=== PATIENT | female | born 1995 | race Caucasian/White ===

== ENCOUNTER 2017-07-12 17:33 | Outpatient (CLI) | payer OTHER ==
[2017-07-12] MEDS: TERBUTALINE 1 MG/ML INJ SC (18:49)
[2017-07-12] MEDS: LACTATED RINGER'S 1,000 ML IV (18:49)
== END 2017-07-12 20:05 | disposition home or self-care (01) ==
LOC: OBT 17:33 → L-D 17:35 → OBT 20:05
DX: O36.8130 Decreased fetal movements, third trimester, not applicable or unspecified (principal); Z3A.34 34 weeks gestation of pregnancy
CPT/HCPCS: 76818; 96360; 96372

== ENCOUNTER 2017-07-27 12:31 | Outpatient (CLI) | payer OTHER ==
[2017-07-27 13:44] LABS: RUPTURE FETAL MEMBRANES NEGATIVE (NEGATIVE)
[2017-07-27] MEDS: LACTATED RINGER'S 1,000 ML IV (15:15)
== END 2017-07-27 16:45 | disposition home or self-care (01) ==
LOC: OBT 12:31 → L-D 12:35 → OBT 16:45
DX: O42.92 Full-term premature rupture of membranes, unspecified as to length of time between rupture and onset of labor (principal); Z3A.37 37 weeks gestation of pregnancy
CPT/HCPCS: 36415; 76816; 76818; 84112; 96360

== ENCOUNTER 2017-07-28 16:57 | Outpatient (CLI) | payer OTHER | END 2017-07-28 18:30 | disposition home or self-care (01) | LOC: OBT 16:57 → L-D 16:58 → OBT 18:30 | DX: O42.913 Preterm premature rupture of membranes, unspecified as to length of time between rupture and onset of labor, third trimester (principal); Z3A.35 35 weeks gestation of pregnancy | CPT/HCPCS: 76818 ==

== ENCOUNTER 2017-08-16 15:42 | Inpatient (IN) | payer OTHER ==
[2017-08-16] MEDS: LACTATED RINGER'S 1,000 ML IV ×2 (17:19→21:09)
[2017-08-16] MEDS ORDERED: BUTORPHANOL 2 MG INJ IV (21:00)
[2017-08-16] MEDS ORDERED: OXYTOCIN 30 UNITS/LR 500 ML IV (21:00)
[2017-08-16] MEDS ORDERED: LIDOCAINE 1% (MPF) 30 ML INJ INJ (21:00)
[2017-08-16] MEDS ORDERED: CARBOPROST 250 MCG INJ IM (21:00)
[2017-08-16] MEDS ORDERED: MISOPROSTOL 200 MCG TAB PR (21:00)
[2017-08-16] MEDS: AMPICILLIN 2 GM/NS (PMX) 100 ML IV (21:12)
[2017-08-16 21:15] LABS: ADD MAN DIFF? NO
[2017-08-16 21:17] LABS: BASOPHILS % 0.3 % (0.0-2.0); EOSINOPHILS % 0.5 % (0.0-7.0); HEMATOCRIT 31.1 % (37.0-47.0); HEMOGLOBIN 9.8 g/dl (12.0-16.0); LYMPHOCYTES # 1.5 10^3/ul (0.8-2.9); LYMPHOCYTES % 25.3 % (15.0-51.0); MEAN CORPUSCULAR HEMOGLOBIN 23.9 pg (29.0-33.0); MEAN CORPUSCULAR HGB CONC 31.5 g/dl (32.0-37.0); MEAN CORPUSCULAR VOLUME 75.9 fl (82.0-101.0); MONOCYTE # 0.4 10^3/ul (0.3-0.9); NEUTROPHILS % 66.4 % (39.0-77.0); NUCLEATED RED BLOOD CELLS% 0.7 /100WBC (0.0-0.0); PLATELET COUNT 189 10^3/UL (140-415); RED CELL DISTRIBUTION WIDTH 17.2 % (11.5-14.5)
[2017-08-16 21:46] LABS: INR 0.94; PROTIME 12.7 Sec (11.9-14.9)
[2017-08-16 21:47] LABS: PARTIAL THROMBOPLASTIN TIME 24.3 Sec (25.0-35.0)
[2017-08-16 22:06] LABS: HEPATITIS B SURFACE ANTIGEN NEGATIVE (NEGATIVE)
[2017-08-17] MEDS: LACTATED RINGER'S 1,000 ML IV ×2 (01:00→06:39)
[2017-08-17] MEDS ORDERED: FENTAnyl 2MCG/ML-ROPIV 0.2% 100 ML (01:27)
[2017-08-17] MEDS: AMPICILLIN 1 GM/NS (PMX) 50 ML IV ×3 (01:33→09:00)
[2017-08-17] MEDS ORDERED: DIPHENHYDRAMINE 50 MG INJ IV (05:30)
[2017-08-17] MEDS ORDERED: NALOXONE (0.4 MG/ML) INJ IV (05:30)
[2017-08-17] MEDS ORDERED: ONDANSETRON 4 MG INJ IV (05:30)
[2017-08-17] MEDS: FENTAnyl 2MCG/ML-ROPIV 0.2% 100 ML BAG EPI (08:54)
[2017-08-17] MEDS: OXYTOCIN 30 UNITS/LR 500 ML IV ×3 (08:57→14:19)
[2017-08-17] MEDS: METHYLERGONOVINE 0.2 MG INJ IM (09:21)
[2017-08-17] MEDS ORDERED: BENZOCAINE 20% 56 ML SPRAY TOP (11:00)
[2017-08-17] MEDS ORDERED: METHYLERGONOVINE 0.2 MG INJ IM (11:00)
[2017-08-17] MEDS ORDERED: OXYCODONE/ASPIRIN (4.88/325) TAB PO ×2 (11:00)
[2017-08-17] MEDS ORDERED: CARBOPROST 250 MCG INJ IM (11:00)
[2017-08-17] MEDS ORDERED: OXYTOCIN 30 UNITS/LR 500 ML IV (11:00)
[2017-08-17] MEDS ORDERED: METHYLERGONOVINE 0.2 MG TAB PO (11:00)
[2017-08-17] MEDS ORDERED: ACETAMINOPHEN 325 MG TAB PO (11:00)
[2017-08-17] MEDS ORDERED: HYDROCODONE/APAP (5/325) TAB PO (11:00)
[2017-08-17] MEDS ORDERED: MISOPROSTOL 200 MCG TAB PR (11:00)
[2017-08-17] MEDS: ONDANSETRON 4 MG INJ IV (11:10)
[2017-08-17] MEDS: WITCH HAZEL/GLYCERIN PAD PR (12:01)
[2017-08-17] MEDS: DIBUCAINE 1% 30 GM OINT TOP (12:01)
[2017-08-17] MEDS: LANOLIN 7 GM TUBE TOP (12:01)
[2017-08-17] MEDS: IBUPROFEN 600 MG TAB PO ×3 (12:01→23:36)
[2017-08-17 14:57] LABS: RAPID PLASMA REAGIN NONREACTIVE (NR)
[2017-08-17] MEDS: HYDROCODONE/APAP (5/325) TAB PO (19:35)
[2017-08-17] MEDS: SENNA/DOCUSATE NA (8.6MG/50MG) TAB PO (21:17)
[2017-08-18] MEDS: IBUPROFEN 600 MG TAB PO ×4 (05:29→23:59)
[2017-08-18 08:51] LABS: ADD MAN DIFF? NO
[2017-08-18 08:55] LABS: WHITE BLOOD COUNT 8.9 10^3/ul (4.8-10.8)
[2017-08-18 08:55] LABS: BASOPHILS % 0.3 % (0.0-2.0); EOSINOPHILS # 0.1 10^3/ul (0.0-0.5); EOSINOPHILS % 0.6 % (0.0-7.0); HEMATOCRIT 29.7 % (37.0-47.0); HEMOGLOBIN 9.1 g/dl (12.0-16.0); LYMPHOCYTES # 2.2 10^3/ul (0.8-2.9); LYMPHOCYTES % 24.8 % (15.0-51.0); MEAN CORPUSCULAR HEMOGLOBIN 23.4 pg (29.0-33.0); MEAN CORPUSCULAR HGB CONC 30.6 g/dl (32.0-37.0); MEAN CORPUSCULAR VOLUME 76.3 fl (82.0-101.0); MEAN PLATELET VOLUME 10.2 fl (7.4-10.4); MONOCYTE # 0.5 10^3/ul (0.3-0.9); MONOCYTES % 5.6 % (0.0-11.0); NEUTROPHILS % 68.1 % (39.0-77.0); NUCLEATED RED BLOOD CELLS% 0.3 /100WBC (0.0-0.0); PLATELET COUNT 160 10^3/UL (140-415); RED BLOOD COUNT 3.89 10^6/ul (4.20-5.40); RED CELL DISTRIBUTION WIDTH 17.3 % (11.5-14.5)
[2017-08-18] MEDS: SENNA/DOCUSATE NA (8.6MG/50MG) TAB PO ×2 (09:10→20:31)
[2017-08-18] MEDS: DIBUCAINE 1% 30 GM OINT TOP (20:31)
[2017-08-18] MEDS: LANOLIN 7 GM TUBE TOP (20:31)
[2017-08-18] MEDS: HYDROCODONE/APAP (5/325) TAB PO (22:22)
[2017-08-19] MEDS: IBUPROFEN 600 MG TAB PO ×2 (05:58→11:50)
[2017-08-19] MEDS: SENNA/DOCUSATE NA (8.6MG/50MG) TAB PO (08:42)
[2017-08-19] MEDS: MEASLES,MUMPS,RUBELLA VACCINE INJ SC* (09:00)
== END 2017-08-19 15:45 | disposition home or self-care (01) | DRG 775 ==
LOC: OBT 15:42 → PP1 08-17 10:09 → L-D 15:43 → OBT 20:30 → L-D 20:30
PROVIDERS: Obstetrics & Gynecology
PROC: 10E0XZZ Delivery of Products of Conception, External Approach (ICD-10-PCS; principal; 2017-08-17)
PROC: 0KQM0ZZ Repair Perineum Muscle, Open Approach (ICD-10-PCS; 2017-08-17)
PROC: 3E033VJ Introduction of Other Hormone into Peripheral Vein, Percutaneous Approach (ICD-10-PCS; 2017-08-17)
DX: O99.214 Obesity complicating childbirth (principal); Z68.41 Body mass index [BMI] 40.0-44.9, adult; E66.01 Morbid (severe) obesity due to excess calories; O70.1 Second degree perineal laceration during delivery; Z3A.38 38 weeks gestation of pregnancy; Z37.0 Single live birth
CPT/HCPCS: 36415; 62319; 76816; 76818; 85025; 85610; 85730; 86592; 86900; 86901; 87340; 96360; 96361